=== PATIENT | male | born 1995 | race African-American/Black ===

== ENCOUNTER 2024-06-16 09:52 | Emergency (ER) | payer MEDICAID ==
[~2024-06-16] VITALS: Ht 182.9 cm; Wt 81.8 kg
[2024-06-16 09:55] VITALS: TEMP 98.2
[2024-06-16 10:05] VITALS: BP 122/63; PULSE 72; RESP 16; O2SAT 99
[2024-06-16] MEDS ORDERED: ACET-66 PO (10:23)
[2024-06-16] MEDS ORDERED: CEPH-558 PO (10:23)
== END 2024-06-16 10:39 | disposition home or self-care (01) ==
LOC: EMS 09:55
DX: S50.11XA Contusion of right forearm, initial encounter (principal); F12.90 Cannabis use, unspecified, uncomplicated; X58.XXXA Exposure to other specified factors, initial encounter; Y93.89 Activity, other specified; Y92.89 Other specified places as the place of occurrence of the external cause; Y99.8 Other external cause status
CPT/HCPCS: 99283; Z7502